=== PATIENT | female | born 1955 | race Caucasian/White ===

== ENCOUNTER 2017-08-16 11:07 | Day surgery (SDC) | payer SELFPAY ==
--- NOTE | 2017-08-16 09:23 | History and Physical - [facility] ---
CHIEF COMPLAINT/HISTORY OF CHIEF COMPLAINT: This patient with a history of an implanted spinal infusion system with Hydromorphone has battery depletion and is here for battery replacement. PAST MEDICAL HISTORY: Post lumbar laminectomy syndrome and multiple sclerosis. PAST SURGICAL HISTORY: Extensive, list to be provided. MEDICATIONS ON ADMISSION: List to be provided. ALLERGIES: None. FAMILY/PSYCHOSOCIAL HISTORY: Social history - Positive for smoking, social alcohol, and caffeine. Family history - Noncontributory. SYSTEMS REVIEW: The patient is appropriate somewhat in distress. Noted blood pressure problems, peripheral edema, and degenerative arthritis. PHYSICAL EXAMINATION: Height is 5'4", weight is 200 pounds. No vital signs. HEENT: Within normal limits. LUNGS: Coarse and bronchiectatic. HEART: Rapid. ABDOMEN: Tender. MUSCULOSKELETAL: Examination of the musculoskeletal system shows the patient assistive device dependent on oxygen. The pump in the posterior gluteal margin at the right is noted and the incision is intact. NEUROLOGIC: Cranial nerves appear to be intact. IMPRESSION: 1. POST LUMBAR LAMINECTOMY SYNDROME, ICD-10 CODE M96.1. 2. LUMBAR RADICULITIS, ICD-10 CODE M54-16 AND M54.17. 3. SPINAL INFUSION SYSTEM WITH HYDROMORPHONE WITH BATTERY DEPLETION. PLAN: The patient is here for battery replacement on an outpatient basis. All of the potential risks, side effects, and complications were reviewed and discussed. JOB NUMBER: [id number] MTDD
[~2017-08-16 11:07] MED LIST: ACETAMINOPHEN 1,000 MG/100 ML BTL IV ONE; BUPIVACAINE HCL IV ONE; CEFAZOLIN 2 Gram 2 GM/50 ML BAG IVPB ONE; FAMOTIDINE 20MG TABLET PO ONE; HYDROMORPHONE HCL IV ONE; HYDROMORPHONE PF 2MG/ML AMP 0.004 MG in 0.9 % SODIUM CHLORIDE 10ML VIA 0.998 ML IV ONE; MECLIZINE 25 MG TABLET PO ONE; METOCLOPRAMIDE 10 MG TABLET PO ONE; [UNRECOGNIZED DRUG - OTHER] IV ONE
[2017-08-16] MEDS ORDERED: MIDAZOLAM HCL 2MG/2ML VIAL IV ONE (11:08)
[2017-08-16] MEDS ORDERED: BUPIVACAINE 0.5% W/EPI MPF 30 ML VIAL IVP ONE (11:08)
[2017-08-16] MEDS ORDERED: LIDOCAINE 1% W/EPI 1:200,000 MPF 30ML SQ ONE (11:08)
[2017-08-16] MEDS ORDERED: *PACU ONLY* KETAMINE HCL 10 MG/ML (20ML) VIAL IV ONE (11:08)
[2017-08-16] MEDS ORDERED: PROPOFOL 10 MG/ML VIAL IV ONE (11:08)
[2017-08-16] MEDS ORDERED: FENTANYL PF 100MCG/2ML VIAL IV ONE (11:08)
[2017-08-16] MEDS ORDERED: CEFAZOLIN 1G VIAL IM ONE (11:08)
--- NOTE | 2017-08-17 15:36 | Operative Note - [facility] ---
DATE OF SURGERY: 08/16/17 PREOPERATIVE DIAGNOSES: 1. POST LUMBAR LAMINECTOMY SYNDROME, ICD-10 CODE = M96.1. 2. LUMBAR RADICULITIS, ICD-10 CODE = M54.16 AND M54.17. 3. IMPLANTED SPINAL OPIOID INFUSION SYSTEM HYDROMORPHONE WITH BATTERY DEPLETION. OPERATION: INCISION, SUBCUTANEOUS DISSECTION, AND REMOVAL AND REPLACEMENT OF PROGRAMMABLE PUMP AT RIGHT POSTERIOR GLUTEAL MARGIN. SURGEON: CLARA LENZ D.O. ANESTHESIA: LOCAL SEDATION. ANESTHESIA PROVIDER: TANISHA WRIGHT CRNA INDICATION: This patient presents with a history of a postlaminectomy radiculitis and a spinal opioid infusion device infusing Hydromorphone. On the last number of refills, her battery depletion has been identified. She is here for battery change. PROCEDURE: Intravenous line, vital sign monitoring, IV sedation, prepped and draped, sterile technique. Patient position prone. Sterile prep. Sterile technique. At the right posterior gluteal margin, the previous incision for the pump infiltrated, incision made, and subcutaneous dissection was conducted to the pump. The pump was then exteriorized and from the indwelling catheter. Antibiotic irrigation and Bovie for hemostasis. A new pump pre-filled Hydromorphone 30 mg per mL placed onto the field. The pump was then interfaced with the indwelling catheter. Antibiotic irrigation and Bovie for hemostasis. The pump was placed into the pouch and secured to the fascia with nonabsorbable suture using a single pump eyelet. With the pump into the pouch, the incision was closed Vicryl for fascia and running subcuticular Vicryl for skin. Dermabond closure. The pump was then programmed to deliver by continuous infusion Hydromorphone at the previous rate 5.5 mg per day with Bupivacaine also at 5.548 mg per day. All alarm values were reset. She was transported to the Recovery Room, stable. No side-effects from the procedure or the sedation. When fully awake and alert, she will be discharged to home. DISCHARGE INSTRUCTIONS: 1. Sites to remain clean and dry. No showering or bathing in any way that would disrupt dressings. If it happens, contact the clinic. 2. Standard medications resumed including Levaquin, the antibiotic, 500 mg once a day for 14 days. 3. The office will contact the patient in 5-7 days to set up an appointment in 10 days to evaluate the site. Until then, her activities should stay low. All other instructions provided, numbers to contact with any problems were given including the office. Local Emergency Room is always accessible. cc: Dr. Palafox JOB NUMBER: [id number] MTDD
== END 2017-08-16 14:55 | disposition home or self-care (01) ==
LOC: SUR 11:07
PROVIDERS: ATTEND Pain Medicine Interventional Pain Medicine
DX: T85.695A Other mechanical complication of other nervous system device, implant or graft, initial encounter (principal); M96.1 Postlaminectomy syndrome, not elsewhere classified; M54.16 Radiculopathy, lumbar region; M54.17 Radiculopathy, lumbosacral region; J45.909 Unspecified asthma, uncomplicated
CPT/HCPCS: 62362; 00300; 62368; 84132; J3010; J0690; J1170